=== PATIENT | male | born 1960 | race Two or more races ===

== ENCOUNTER 2024-12-19 12:58 | Outpatient (RCR) | payer MEDICAID, SELFPAY ==
--- NOTE | 2024-12-19 14:36 | CTCCONSULT_ITS ---
[facility] [address] [place], [place] [address] Consultation Note Date: 12/19/2024 MR#: [id number] Name: TEODORO NIEVES : 1960 Dx: C20 Malignant neoplasm of rectum Referring physician. Poli Llamas MD Reason for consultation. Patient with stage IIIb colorectal cancer status post neoadjuvant FOLFOX 9 cycles referred for radiation therapy along with 5-FU. History of Present Illness: Patient is a 64-year-old gentleman who works as a cook at [employer] was passing blood via rectum earlier this year. Patient was admitted for colonoscopy 05/06/2024 where lesion was noted from anal canal almost to sigmoid arising from the left posterolateral wall. Biopsy revealed suspicious for superficial invasion adenocarcinoma. Grade and the mismatch repair protein status unclear. Patient had MRI 05/08/2024 9.3 x 3.5 x 3.8 cm mass invading the perirectal to almost the outer edge with 2 suspicious iliac chain lymph nodes bilaterally on each side. Radiographically stage IIIb T3b N1b. Patient completed 9 cycles of neoadjuvant FOLFOX chemo between 06/06/2024 through 10/11/2024. Now referred for neoadjuvant radiation with radiosensitizing 5-FU. AP resection is to be performed by Dr. Raymon Mata colorectal surgeon has already seen him while in hospital. Past Medical History: Diabetes mellitus type 2 iron deficiency anemia Meds. Ondansetron Januvia lidocaine vitamin D3 metformin olanzapine Jardiance Allergies none to meds Family history. No colon cancer in family Social History: Patient originally at the 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 Denies smoking drinking Review of Systems: Denies significant pain weight loss Physical Exam: General: Well-nourished gentleman in no acute distress HEENT: Atraumatic normocephalic extraocular is intact no oral lesions no cervical or supraclavicular adenopathy CV: Chest clear to auscultation heart regular rate and rhythm ABD: Soft no organomegaly or tenderness EXT: No cyanosis clubbing or edema Assessment: 1. Patient with stage IIIb colorectal cancer completed 9 cycles of neoadjuvant FOLFOX chemo with Dr. Poli Llamas,on 10/11/2024. 2. Now ready for the neoadjuvant radiation along with 5-FU infusion. 3. Approximately 5 weeks of radiation to the pelvis treating the tumor and adjacent cornelio sites via modern VMAT method will be planned for patient. 4. Side effects explained. transaction advisory services manager to help with patient's transportation. 5. Thank you very much for allowing me to evaluate and manage this patient Cc: Poli Llamas MD Electronically signed by: Oswald Rai MD, DABR 12/19/2024 2:34 PM
--- NOTE | 2024-12-19 14:42 | CTCTXPLN_ITS ---
[facility] [address] [place], [place] [address] Physician Clinical Treatment Planning Note Date of Service: 12/19/2024 Name: TEODORO NIEVES D.O.B.: 1960 The patient has agreed to proceed with Radiation therapy. Tests and supporting medical records were interpreted to assist in defining the tumor location and extent of disease. Further imaging will be necessary to contour and delineate the volume to which the XRT will be provided. A. Treatment Intent: Curative 10 MV B. Modality: C. Requested Technique: VMAT D. Treatment Site: E. Critical structures to be contoured on plan: Pelvis F. In order to accomplish this plan, I am ordering/Prescribing the followin. Simulations (s) will be performed to accomplish a reproducible treatment position, to determine optimal treatment portals/beam arrangements, to design beam modifying devices and verify treatment portals on patient prior to the commencement of Radiation Therapy. Pelvis 2. Devices; for immobilization and beam shaping: Vac-Marcia 3. CT Guidance for placement of XRT fuentes Scan area: 4. Portal images Frequency: 5. Invivo transit dose measurement once per week on all VMAT patients. 6. Special Physics Consult Requested for: 7. Other requests: Special procedure chemoradiation G. Dose Objectives: Curative Electronically signed by: Oswald Rai M.D. 12/19/2024 2:39 PM
--- NOTE | 2024-12-19 14:43 | CTCTXPLNST_ITS ---
Radiation Oncology Treatment Planning Sheet Name: TEODORO NIEVES MR#: [id number] : 1960 Dx: C20 Malignant neoplasm of rectum Date of Service: 12/19/2024 Account #: ?? Pt Treatment Intent: curative palliative other: Stage: Procedure CPT # Ordered Spec. Procedure 24316 1 Lieberman Complex (set-up) 69170 pelvis 1 Lieberman Simple 45832 IMRT Plan 03173 1 MLC Devices VMAT 14517 3 Lieberman 3 D 70562 TRTMT dev Complex 07735 vsklok 1 TRTMT dev simple 47633 Basic Franky 94033 9 Special Dosimetry 88764 Spec Physics 90706 Port Films 14214 SRS Cranial/1FX 17015 SBR 5 FX or Less /ex: 5 = 5 fx 74585 IMRT Simple 08338 5000 25 IMRT Complex 22427 IGRT 23604 25 Rad del [employer] 6-10 42480 Rad del [employer] 11 09838 Cont Med Physics 33558 5 Treatment Planning 48297 1 Weekly Evaluation 04977 5 Rad del com 20 mev 00253 Special Port Plan 14539 TRTMT dev inter 79954 Isodose Complex 75698 Isodose simple 97257 Resp Motion Mgmt Simulation 12672 Placement of Fiducial Markers 17938 Electronically Signed By: Oswald Rai MD, GAYLER 12/19/2024 2:41 PM
== END 2024-12-19 23:59 | disposition home or self-care (01) ==
LOC: SCTC 12:58
PROVIDERS: Referring Provider Internal Medicine Hematology & Oncology; Visit Provider Radiology Therapeutic Radiology
DX: C19 Malignant neoplasm of rectosigmoid junction (principal); Z92.21 Personal history of antineoplastic chemotherapy
CPT/HCPCS: 99213; G0463

== ENCOUNTER 2025-02-14 09:30 | Outpatient (RCR) | payer MEDICARE, MEDICAID, SELFPAY ==
--- NOTE | 2025-01-22 14:43 | CTCTRTNOTE_ITS ---
[facility] [address], [place] [address] Weekly Management Date: 01/22/2025 ?? Name: TEODORO Curran.: 1960 A. Patient is currently at 1200 cGy. B. Patient is tolerating treatment well. Getting chemo via pump with Dr. Llamas. C. Resume radiation therapy. Electronically signed by: Oswald Rai M.D. 01/22/2025 2:41 PM
== END 2025-02-18 23:59 | disposition home or self-care (01) ==
LOC: SCTC 09:30
PROVIDERS: Referring Provider Radiology Therapeutic Radiology; Visit Provider Radiology Therapeutic Radiology
DX: Z51.0 Encounter for antineoplastic radiation therapy (principal); C19 Malignant neoplasm of rectosigmoid junction
CPT/HCPCS: 77336; 77385; 99424; 99425

== ENCOUNTER 2025-03-08 10:40 | Outpatient (RCR) | payer MEDICARE, MEDICAID, SELFPAY ==
--- NOTE | 2025-02-19 15:46 | CTCTRTNOTE_ITS ---
[facility] [address], [place] [address] Weekly Management Date: 02/19/2025 ?? Name: TEODORO Curran.: 1960 A. Patient is currently at 4400 cGy. B. Patient is tolerating treatment well. C. Resume radiation therapy. Electronically signed by: Oswald Rai M.D. 02/19/2025 3:44 PM
== END 2025-03-21 23:59 | disposition home or self-care (01) ==
LOC: SCTC 10:40
PROVIDERS: PCP Physician Assistant; Referring Provider Radiology Therapeutic Radiology; Visit Provider Radiology Therapeutic Radiology
DX: Z51.0 Encounter for antineoplastic radiation therapy (principal); C20 Malignant neoplasm of rectum
CPT/HCPCS: 77385; 99212; G0463